=== PATIENT | female | born 1965 | race Caucasian/White ===

== ENCOUNTER 2016-12-30 03:58 | Emergency (ER) | payer SELFPAY ==
[~2016-12-30] VITALS: Ht 167.6 cm; Wt 68.0 kg
[2016-12-30 03:59] VITALS: BP 133/92; PULSE 83; RESP 16; TEMP 98.5; O2SAT 96
--- NOTE | 2016-12-30 04:59 | PD ---
HPI Chief Complaint: Medication Refill Request Time Seen by Provider: 04:45 Travel History International Travel<30 days: No Contact w/Intl Traveler<30days: No Traveled to known affect area: No History of Present Illness HPI 51-year-old female recently moved to the area from [place], [place] questioning refills of her chronic medications for pain and bipolar disorder. She denies HI/ SI. Denies recent illicit drug use or overdose. History Past Medical Histgory Tetanus Vaccination: < 5 Years Social History Alcohol Use: No Tobacco Use: No Allergies-Medications (Allergen,Severity, Reaction): Coded Allergies: Penicillins (Verified Allergy, Mild, SORES, 12/30/16) "I BREAK OUT IN SORES IN MY MOUTH" Sulfa (Sulfonamide Antibiotics) (Verified Allergy, Mild, SORES, 12/30/16) "I GET SORES ON THE INSIDE OF MY MOUTH" Reported Meds & Prescriptions Reported Meds & Active Scripts Active Reported Adderall (Amphetamine-Dextroamphetamine) 30 Mg Tab 30 Mg PO BID Avoid late evening doses. Space doses at least 4 to 6 hours if more than once/day dosing. [suboxone] 24 Mg PO TID Levothyroxine (Levothyroxine Sodium) 75 Mcg Tab 75 Mcg PO DAILY Proair Hfa 8.5 GM Inh (Albuterol Sulfate) 90 Mcg/Act Aer 1 Puff INH Q4H PRN 108 mcg/actuation Clonidine (Clonidine HCl) 0.1 Mg Tab 0.1 Mg PO BID Lactulose Liq (Lactulose) 10 Gm/15 Ml Soln 30 Ml PO BID Metoprolol Succinate ER 24 HR (Metoprolol Succinate) 25 Mg Tab 25 Mg PO DAILY Estradiol 1 Mg Tab 1 Mg PO DAILY Nexium (Esomeprazole DR) 40 Mg Capdr 40 Mg PO DAILY Trileptal (Oxcarbazepine) 600 Mg Tab 600 Mg PO TID Abilify (Aripiprazole) 10 Mg Tab 10 Mg PO DAILY Review of Systems Except as stated in HPI: all other systems reviewed are Neg Physical Exam Narrative GENERAL: Well-developed appears older than stated age SKIN: Focused skin assessment warm/dry. HEAD: Atraumatic. Normocephalic. EYES: Pupils equal and round. No scleral icterus. No injection or drainage. ENT: No nasal bleeding or discharge. Mucous membranes pink and moist. NECK: Trachea midline. No JVD. CARDIOVASCULAR: Regular rate and rhythm. No murmur appreciated. RESPIRATORY: No accessory muscle use. Clear to auscultation. Breath sounds equal bilaterally. MUSCULOSKELETAL: No obvious deformities. No clubbing. No cyanosis. No edema. NEUROLOGICAL: Awake and alert. Motor grossly within normal limits. Normal speech. PSYCHIATRIC: Appropriate mood and affect. Data Data Last Documented VS Vital Signs Date Time Temp Pulse Resp B/P (MAP) Pulse Ox O2 Delivery O2 Flow Rate FiO2 12/30/16 03:59 98.5 83 16 133/92 (106) 96 Room Air MDM Medical Screen Exam Complete: Yes Emergency Medical Condition: No Differential Diagnosis Substance Abuse Disorder Narrative Course [id number]/f here for medication refill of multiple medications to include Suboxone, Adderall, and blood pressure medications. She stats that she has appointment Saturday with psychiatry for refill of her medications. Denies SI/HI. Denies illicit drug use or medication overdose. Pt understands that this needs to be refilled by her primary care doctor or psychiatrist but does not want to wait. Pt given local resource information and advised to follow up with her physicians. A medical screening exam was performed: At the time of evaluation the presenting medical condition was determined not to be of an emergent nature. The patient was given the option of receiving additional care, but declined. Patient was given options for additional community resources from which to obtain care. The Patient Has Been advised to seek medical attention for their presenting complaint. The patient has been advised to return to the ER at any time if an emergent condition develops. Primary Impression: Encounter for medical screening examination Disposition: 01 DISCHARGE HOME Condition: Stable Eileen Brock Dec 30, 2016 04:59
[2016-12-30] MEDS ORDERED: suboxone PO (05:01)
[2016-12-30] MEDS ORDERED: ESTR1TAB PO (05:01)
[2016-12-30] MEDS ORDERED: TRIL600T PO (05:01)
[2016-12-30] MEDS ORDERED: CLON0.1T PO (05:01)
[2016-12-30] MEDS ORDERED: NEXI40CA PO (05:01)
[2016-12-30] MEDS ORDERED: ALBUAER3 INH (05:01)
[2016-12-30] MEDS ORDERED: LEVO75TA3 PO (05:01)
[2016-12-30] MEDS ORDERED: LACT10SO PO (05:01)
[2016-12-30] MEDS ORDERED: ADDE30TA PO (05:01)
[2016-12-30] MEDS ORDERED: METO25TA6 PO (05:01)
[2016-12-30] MEDS ORDERED: ARIP1TAB5 PO (05:01)
== END 2016-12-30 10:01 | disposition left against medical advice (07) ==
LOC: NEPD 03:58
DX: F31.9 Bipolar disorder, unspecified (principal); Z76.0 Encounter for issue of repeat prescription
CPT/HCPCS: 99281

== ENCOUNTER 2017-02-14 18:30 | Emergency (ER) | payer MEDICARE, OTHER ==
[~2017-02-14] VITALS: Ht 167.6 cm; Wt 64.0 kg
[~2017-02-14 18:30] MED LIST: ABIL10TA8 PO; ADDE30TA PO; ALBUAER3 INH; CLON0.1T PO; ESTR1TAB PO; LACT10SO PO; LEVO75TA3 PO; METO1TAB42 PO; NEXI40CA PO; TRIL600T PO; suboxone PO
[2017-02-14 18:40] VITALS: BP 191/86; PULSE 86; RESP 16; TEMP 98.7; O2SAT 98
[2017-02-14] MEDS ORDERED: TOPA50TA7 PO (18:55)
[2017-02-14] MEDS ORDERED: PHEN-537 PO (18:55)
[2017-02-14] MEDS ORDERED: ZOFR4TAB PO (18:55)
[2017-02-14] MEDS ORDERED: LISD50 PO (18:55)
[2017-02-14 19:01] VITALS: BP 199/86; PULSE 88; RESP 20; O2SAT 98
--- NOTE | 2017-02-14 20:13 | PD ---
HPI Chief Complaint: Psychiatric Symptoms Time Seen by Provider: 18:51 Travel History International Travel<30 days: No Contact w/Intl Traveler<30days: No Traveled to known affect area: No History of Present Illness HPI 51-year-old female presents to the emergency room under Jacobs act initiated by her addiction physician. according to transfer report, patient was placed under Jacobs act because she appears to be persistently manic with flight of ideas, tangential thinking, and refuses voluntary treatment for drug addiction. Her physician is concerned that she is using methamphetamine and lying about it. Patient denies any recent drug use. States she has not used drugs since 2014 after her dog . She denies suicidal or homicidal ideation. denies hallucinations or delusions. States she has not had her psychiatric medication recently because she was in [facility]. Patient has history of hypothyroidism, hypertension, COPD, and GERD. PFSH Past Medical History Autoimmune Disease: Yes (Hepatitis C) Bipolar Disorder: Yes Anxiety: Yes Depression: Yes Diabetes: Yes Patient Takes Glucophage: No Diminished Hearing: No GERD: Yes Hypertension: Yes ?: Not : 2 Para: 2 Past Surgical History Hysterectomy: Yes Social History Alcohol Use: No Tobacco Use: No Substance Use: Yes (HX polysubstance) Allergies-Medications (Allergen,Severity, Reaction): Coded Allergies: Penicillins (Verified Allergy, Mild, SORES, 12/30/16) "I BREAK OUT IN SORES IN MY MOUTH" Sulfa (Sulfonamide Antibiotics) (Verified Allergy, Mild, SORES, 12/30/16) "I GET SORES ON THE INSIDE OF MY MOUTH" Reported Meds & Prescriptions Reported Meds & Active Scripts Active Reported Topamax (Topiramate) 50 Mg Tab 50 Mg PO HS Phenazopyridine (Phenazopyridine HCl) 200 Mg Tab 200 Mg PO TID Zofran (Ondansetron HCl) 4 Mg Tab 4 Mg PO Q6HR PRN Vyvanse (Lisdexamfetamine Dimesylate) 50 Mg Cap 100 Mg PO HS Adderall (Amphetamine-Dextroamphetamine) 30 Mg Tab 30 Mg PO BID Avoid late evening doses. Space doses at least 4 to 6 hours if more than once/day dosing. [suboxone] 24 Mg PO TID Levothyroxine (Levothyroxine Sodium) 75 Mcg Tab 75 Mcg PO DAILY Proair Hfa 8.5 GM Inh (Albuterol Sulfate) 90 Mcg/Act Aer 1 Puff INH Q4H PRN 108 mcg/actuation Clonidine (Clonidine HCl) 0.1 Mg Tab 0.1 Mg PO BID Lactulose Liq (Lactulose) 10 Gm/15 Ml Soln 30 Ml PO BID Metoprolol Succinate ER 24 HR (Metoprolol Succinate) 25 Mg Tab 25 Mg PO DAILY Estradiol 1 Mg Tab 1 Mg PO DAILY Nexium (Esomeprazole DR) 40 Mg Capdr 40 Mg PO DAILY Trileptal (Oxcarbazepine) 600 Mg Tab 600 Mg PO TID Abilify (Aripiprazole) 10 Mg Tab 10 Mg PO DAILY Review of Systems Except as stated in HPI: all other systems reviewed are Neg Physical Exam Narrative GENERAL: Well-nourished, well-developed female in no acute distress. Afebrile. Ambulatory. SKIN: Focused skin assessment warm/dry. HEAD: Normocephalic. EYES: No scleral icterus. No injection or drainage. NECK: Supple, trachea midline. No JVD or lymphadenopathy. CARDIOVASCULAR: Regular rate and rhythm without murmurs, gallops, or rubs. RESPIRATORY: Breath sounds equal bilaterally. No accessory muscle use. PSYCHIATRIC: No delusional thought processes. No hallucinations. Pressured speech. Flight of ideas. Data Data Last Documented VS Vital Signs Date Time Temp Pulse Resp B/P (MAP) Pulse Ox O2 Delivery O2 Flow Rate FiO2 02/15/17 06:44 97.8 73 148/67 (94) 96 Room Air 02/14/17 23:41 16 Orders Orders Complete Blood Count With Diff (02/14/17 19:16) Comprehensive Metabolic Panel (02/14/17 19:16) Psych Screen (02/14/17 19:16) Drug Screen, Random Urine (02/14/17 19:16) Alcohol (Ethanol) (02/14/17 19:16) Clonidine (Catapres) (02/14/17 21:00) Diphenhydramine (Benadryl) (02/14/17 21:00) Electrocardiogram (02/15/17 06:43) Troponin I (02/15/17 06:43) Diet Regular Basic (02/15/17 Breakfast) Diet Regular Basic (02/15/17 Lunch) Ed Discharge Order (02/15/17 11:19) Labs Laboratory Tests Test 02/14/17 20:10 02/15/17 06:45 White Blood Count 9.3 TH/MM3 Red Blood Count 4.60 MIL/MM3 Hemoglobin 13.3 GM/DL Hematocrit 40.2 % Mean Corpuscular Volume 87.5 FL Mean Corpuscular Hemoglobin 29.0 PG Mean Corpuscular Hemoglobin Concent 33.1 % Red Cell Distribution Width 13.6 % Platelet Count 354 TH/MM3 Mean Platelet Volume 8.1 FL Neutrophils (%) (Auto) 53.7 % Lymphocytes (%) (Auto) 34.3 % Monocytes (%) (Auto) 6.3 % Eosinophils (%) (Auto) 4.8 % Basophils (%) (Auto) 0.9 % Neutrophils # (Auto) 5.0 TH/MM3 Lymphocytes # (Auto) 3.2 TH/MM3 Monocytes # (Auto) 0.6 TH/MM3 Eosinophils # (Auto) 0.4 TH/MM3 Basophils # (Auto) 0.1 TH/MM3 CBC Comment DIFF FINAL Differential Comment Blood Urea Nitrogen 13 MG/DL Creatinine 0.68 MG/DL Random Glucose 91 MG/DL Total Protein 7.6 GM/DL Albumin 3.8 GM/DL Calcium Level 9.1 MG/DL Alkaline Phosphatase 91 U/L Aspartate Amino Transf (AST/SGOT) 19 U/L Alanine Aminotransferase (ALT/SGPT) 24 U/L Total Bilirubin 0.3 MG/DL Sodium Level 139 MEQ/L Potassium Level 3.9 MEQ/L Chloride Level 106 MEQ/L Carbon Dioxide Level 25.0 MEQ/L Anion Gap 8 MEQ/L Estimat Glomerular Filtration Rate 91 ML/MIN Urine Opiates Screen NEG Urine Barbiturates Screen NEG Urine Amphetamines Screen POS Urine Benzodiazepines Screen NEG Urine Cocaine Screen NEG Urine Cannabinoids Screen NEG Ethyl Alcohol Level LESS THAN 3 MG/DL Troponin I LESS THAN 0.02 NG/ML MDM Medical Decision Making Medical Screen Exam Complete: Yes Emergency Medical Condition: Yes Medical Record Reviewed: Yes Differential Diagnosis Bipolar disorder, drug induced mood disorder, suicidal ideation, drug abuse, schizophrenia Narrative Course 51-year-old female presents to the emergency room under Jacobs act initiated by her addiction physician. States she went to his office earlier today for counseling and ended up getting placed under Jacobs act. Per report, her physician is concerned that she is using methamphetamine and lying about it and refusing treatment. She denies suicidal homicidal ideation. Patient does have pressured speech and flight of ideas but speech is logical. She denies any medical complaints at this time. CBC is unremarkable. CMP and drug screen ordered and pending. Patient notes that her provider Condition: Evette Jacinto Feb 14, 2017 20:13
[2017-02-14 20:43] LABS: BASOPHIL # 0.1 TH/MM3 (0-0.2); BASOPHIL % 0.9 % (0.0-2.0); EOSINOPHIL # 0.4 TH/MM3 (0-0.4); EOSINOPHIL % 4.8 % (0.0-4.0); HEMATOCRIT 40.2 % (35.0-46.0); HEMO FLAGS DIFF FINAL; LYMPH % 34.3 % (9.0-44.0); LYMPHOCYTE # 3.2 TH/MM3 (1.0-4.8); MEAN CELL VOLUME 87.5 FL (80.0-100.0); MEAN CORPUSCULAR HGB CONC 33.1 % (32.0-36.0); MONO % 6.3 % (0.0-8.0); NEUT % 53.7 % (16.0-70.0); PLATELET COUNT 354 TH/MM3 (150-450); RED CELL DISTRIBUTION WIDTH 13.6 % (11.6-17.2); WHITE BLOOD COUNT 9.3 TH/MM3 (4.0-11.0)
[2017-02-14] MEDS ORDERED: cloNIDine HCL 0.1 MG TAB PO ONE (21:00)
[2017-02-14] MEDS ORDERED: diphenhydrAMINE HCL 50 MG CAP PO ONE (21:00)
[2017-02-14 21:09] LABS: ALT (GPT) 24 U/L (10-53); ANION GAP 8 MEQ/L (5-15); AST (GOT) 19 U/L (15-37); BLOOD UREA NITROGEN 13 MG/DL (7-18); CHLORIDE 106 MEQ/L (98-107); GLOMERULAR FILTRATION RATE 91 ML/MIN (>89); POTASSIUM 3.9 MEQ/L (3.5-5.1); SODIUM (NA) 139 MEQ/L (136-145)
[2017-02-14 21:12] LABS: ALKALINE PHOSPHATASE 91 U/L (45-117); TOTAL BILIRUBIN ADULT 0.3 MG/DL (0.2-1.0)
[2017-02-14 21:30] LABS: ALCOHOL LESS THAN 3 MG/DL (0-5)
--- NOTE | 2017-02-14 23:04 | PD ---
Physical Exam Narrative I, Dr. Quinonez, have reviewed the advance practice practitioner's documentation and am in agreement, met with the patient face to face, made the diagnosis, and the medical decision making was done by me. *My assessment and Findings: Manic episode vs. psychosis vs. drug induced psychosis 51yo F was grider acted by her addiction physician. Pt has a flight of ideas. Labs reviewed, no leukocytosis. H/H normal. CMP unremarkable. Urine tox positive for amphetamine. Alcohol negative. BP was elevated and pt given clonidine for it. Pt also requesting medication to help her sleep so diphenhydramine 50mg PO given. Pt medically clear for psych evaluation. Data Data Last Documented VS Vital Signs Date Time Temp Pulse Resp B/P (MAP) Pulse Ox O2 Delivery O2 Flow Rate FiO2 02/15/17 12:05 02/15/17 06:44 97.8 73 96 Room Air 02/14/17 23:41 16 Orders Orders Complete Blood Count With Diff (02/14/17 19:16) Comprehensive Metabolic Panel (02/14/17 19:16) Psych Screen (02/14/17 19:16) Drug Screen, Random Urine (02/14/17 19:16) Alcohol (Ethanol) (02/14/17 19:16) Clonidine (Catapres) (02/14/17 21:00) Diphenhydramine (Benadryl) (02/14/17 21:00) Electrocardiogram (02/15/17 06:43) Troponin I (02/15/17 06:43) Diet Regular Basic (02/15/17 Breakfast) Ed Discharge Order (02/15/17 11:19) Labs Laboratory Tests Test 02/14/17 20:10 02/15/17 06:45 White Blood Count 9.3 TH/MM3 Red Blood Count 4.60 MIL/MM3 Hemoglobin 13.3 GM/DL Hematocrit 40.2 % Mean Corpuscular Volume 87.5 FL Mean Corpuscular Hemoglobin 29.0 PG Mean Corpuscular Hemoglobin Concent 33.1 % Red Cell Distribution Width 13.6 % Platelet Count 354 TH/MM3 Mean Platelet Volume 8.1 FL Neutrophils (%) (Auto) 53.7 % Lymphocytes (%) (Auto) 34.3 % Monocytes (%) (Auto) 6.3 % Eosinophils (%) (Auto) 4.8 % Basophils (%) (Auto) 0.9 % Neutrophils # (Auto) 5.0 TH/MM3 Lymphocytes # (Auto) 3.2 TH/MM3 Monocytes # (Auto) 0.6 TH/MM3 Eosinophils # (Auto) 0.4 TH/MM3 Basophils # (Auto) 0.1 TH/MM3 CBC Comment DIFF FINAL Differential Comment Blood Urea Nitrogen 13 MG/DL Creatinine 0.68 MG/DL Random Glucose 91 MG/DL Total Protein 7.6 GM/DL Albumin 3.8 GM/DL Calcium Level 9.1 MG/DL Alkaline Phosphatase 91 U/L Aspartate Amino Transf (AST/SGOT) 19 U/L Alanine Aminotransferase (ALT/SGPT) 24 U/L Total Bilirubin 0.3 MG/DL Sodium Level 139 MEQ/L Potassium Level 3.9 MEQ/L Chloride Level 106 MEQ/L Carbon Dioxide Level 25.0 MEQ/L Anion Gap 8 MEQ/L Estimat Glomerular Filtration Rate 91 ML/MIN Urine Opiates Screen NEG Urine Barbiturates Screen NEG Urine Amphetamines Screen POS Urine Benzodiazepines Screen NEG Urine Cocaine Screen NEG Urine Cannabinoids Screen NEG Ethyl Alcohol Level LESS THAN 3 MG/DL Troponin I LESS THAN 0.02 NG/ML MDM Supervised Visit with DEVAUGHN: Yes Diagnosis Primary Impression: Psychosis Condition: Stable Yamilet Quinonez DO Feb 14, 2017 23:04
[2017-02-14 23:41] VITALS: BP 115/56; PULSE 97; RESP 16; O2SAT 97
[2017-02-15 06:44] VITALS: BP 148/67; PULSE 73; TEMP 97.8; O2SAT 96
--- NOTE | 2017-02-15 10:33 | PD ---
History of Present Illness Chief Complaint: Psychiatric Symptoms Time Seen by Provider: 10:15 Travel History International Travel<30 Days: No Contact w/Intl Traveler<30days: No Known affected area: No Legal Status Legal Status: Jacobs Act Jacobs Act Signed By: DR. TERE NORWOOD AT [facility] History of Present Illness: 51-year-old female with reported history of bipolar disorder, Arlene acted ( incorrectly) and under a physician certificate for possible substance abuse of amphetamines. Patient denies the abuse of amphetamines. She does acknowledge having them in her possession and her toxicology screen is positive for amphetamines. However, the patient denies any suicidal or homicidal ideation, plan or intent. She has no psychotic symptoms and her cognition is intact. She is verbally maryse for safety and she is competent to do so. Furthermore, this facility is not licensed for drug and alcohol detox/ rehabilitation. The patient was offered transportation to [facility], which is the appropriate facility for treatment of alcohol and drug abuse issues. However, she prefers to go to her hotel and arrange transportation back to her home in [place]. PFSH Past Medical History Autoimmune Disease: Yes (Hepatitis C) Bipolar Disorder: Yes Anxiety: Yes Depression: Yes Diabetes: Yes Patient Takes Glucophage: No Diminished Hearing: No GERD: Yes Hypertension: Yes ?: Not : 2 Para: 2 Past Surgical History Hysterectomy: Yes Psychiatric History Psychiatric History Hx Psychiatric Treatment: HX: BIPOLAR DISORDER PATIENT WAS NOT VERY FORTHCOMING WITH INFORMATION OF HISTORY OF PSYCHIATRIC ILLNESS. The patient is talkative this morning but she does not have pressured speech and she is redirectable. History of Inpatient Treatment: Yes Guns or firearms in home: No Social History Hx Alcohol Use: No Hx Tobacco Use: No Hx Substance Use: Yes (PER JACOBS ACT: AMPHETAMINE ABUSE) Substance Use Type: Amphetamines-Stimulants Hx of Substance Use Treatment: Yes Allergies-Medications (Allergen,Severity, Reaction): Coded Allergies: Penicillins (Verified Allergy, Mild, SORES, 12/30/16) "I BREAK OUT IN SORES IN MY MOUTH" Sulfa (Sulfonamide Antibiotics) (Verified Allergy, Mild, SORES, 12/30/16) "I GET SORES ON THE INSIDE OF MY MOUTH" Reported Meds & Prescriptions Reported Meds & Active Scripts Active Reported Topamax (Topiramate) 50 Mg Tab 50 Mg PO HS Phenazopyridine (Phenazopyridine HCl) 200 Mg Tab 200 Mg PO TID Zofran (Ondansetron HCl) 4 Mg Tab 4 Mg PO Q6HR PRN Vyvanse (Lisdexamfetamine Dimesylate) 50 Mg Cap 100 Mg PO HS Adderall (Amphetamine-Dextroamphetamine) 30 Mg Tab 30 Mg PO BID Avoid late evening doses. Space doses at least 4 to 6 hours if more than once/day dosing. [suboxone] 24 Mg PO TID Levothyroxine (Levothyroxine Sodium) 75 Mcg Tab 75 Mcg PO DAILY Proair Hfa 8.5 GM Inh (Albuterol Sulfate) 90 Mcg/Act Aer 1 Puff INH Q4H PRN 108 mcg/actuation Clonidine (Clonidine HCl) 0.1 Mg Tab 0.1 Mg PO BID Lactulose Liq (Lactulose) 10 Gm/15 Ml Soln 30 Ml PO BID Metoprolol Succinate ER 24 HR (Metoprolol Succinate) 25 Mg Tab 25 Mg PO DAILY Estradiol 1 Mg Tab 1 Mg PO DAILY Nexium (Esomeprazole DR) 40 Mg Capdr 40 Mg PO DAILY Trileptal (Oxcarbazepine) 600 Mg Tab 600 Mg PO TID Abilify (Aripiprazole) 10 Mg Tab 10 Mg PO DAILY Review of Systems Except as stated in HPI: all other systems reviewed are Neg Mental Status Examination Appearance: Appropriate Consciousness: Alert Orientation: x4 Motor Activity: Normal gait Speech: Rapid Language: Adequate Fund of Knowledge: Adequate Attention and Concentration: Adequate Memory: Unremarkable Mood: Appropriate Affect: Appropriate Thought Process & Associations: Circumstantial, Tangential Thought Content: Appropriate Hallucination Type: None Delusion Type: None Suicidal Ideation: No Suicidal Plan: No Suicidal Intention: No Homicidal Ideation: No Homicidal Plan: No Homicidal Intention: No Insight: Adequate Judgment: Adequate MDM Medical Decision Making Medical Record Reviewed: Yes Assessment/Plan Patient interviewed at bedside, medical record reviewed and case discussed with nurse Lord. This physician does not feel the patient meets Jaocbs act criteria or criteria for involuntary psychiatric hospitalization. Furthermore, if she has a substance abuse problem, the licensed facility for treatment of substance abuse or dependence is [facility]. Patient declines to go to [facility] at this time and is competent to make medical decisions. Orders Orders Complete Blood Count With Diff (02/14/17 19:16) Comprehensive Metabolic Panel (02/14/17 19:16) Psych Screen (02/14/17 19:16) Drug Screen, Random Urine (02/14/17 19:16) Alcohol (Ethanol) (02/14/17 19:16) Clonidine (Catapres) (02/14/17 21:00) Diphenhydramine (Benadryl) (02/14/17 21:00) Electrocardiogram (02/15/17 06:43) Troponin I (02/15/17 06:43) Diet Regular Basic (02/15/17 Breakfast) Results Vital Signs Date Time Temp Pulse Resp B/P (MAP) Pulse Ox O2 Delivery O2 Flow Rate FiO2 02/15/17 06:44 97.8 73 148/67 (94) 96 Room Air 02/15/17 01:34 02/14/17 23:41 97 16 115/56 (75) 97 Room Air 02/14/17 19:01 88 20 199/86 (123) 98 Room Air 02/14/17 18:40 98.7 86 16 191/86 (121) 98 Laboratory Tests Test 02/14/17 20:10 02/15/17 06:45 White Blood Count 9.3 Red Blood Count 4.60 Hemoglobin 13.3 Hematocrit 40.2 Mean Corpuscular Volume 87.5 Mean Corpuscular Hemoglobin 29.0 Mean Corpuscular Hemoglobin Concent 33.1 Red Cell Distribution Width 13.6 Platelet Count 354 Mean Platelet Volume 8.1 Neutrophils (%) (Auto) 53.7 Lymphocytes (%) (Auto) 34.3 Monocytes (%) (Auto) 6.3 Eosinophils (%) (Auto) 4.8 Basophils (%) (Auto) 0.9 Neutrophils # (Auto) 5.0 Lymphocytes # (Auto) 3.2 Monocytes # (Auto) 0.6 Eosinophils # (Auto) 0.4 Basophils # (Auto) 0.1 CBC Comment DIFF FINAL Differential Comment Blood Urea Nitrogen 13 Creatinine 0.68 Random Glucose 91 Total Protein 7.6 Albumin 3.8 Calcium Level 9.1 Alkaline Phosphatase 91 Aspartate Amino Transf (AST/SGOT) 19 Alanine Aminotransferase (ALT/SGPT) 24 Total Bilirubin 0.3 Sodium Level 139 Potassium Level 3.9 Chloride Level 106 Carbon Dioxide Level 25.0 Anion Gap 8 Estimat Glomerular Filtration Rate 91 Urine Opiates Screen NEG Urine Barbiturates Screen NEG Urine Amphetamines Screen POS Urine Benzodiazepines Screen NEG Urine Cocaine Screen NEG Urine Cannabinoids Screen NEG Ethyl Alcohol Level LESS THAN 3 Troponin I LESS THAN 0.02 Diagnosis Primary Impression: History of depressed bipolar disorder Condition: Stable Sancho Ortiz MD Feb 15, 2017 10:33
--- NOTE | 2017-02-15 11:22 | PD ---
Physical Exam Date Seen by Provider: Feb 15, 2017 Time Seen by Provider: 11:20 Data Data Last Documented VS Vital Signs Date Time Temp Pulse Resp B/P (MAP) Pulse Ox O2 Delivery O2 Flow Rate FiO2 02/15/17 06:44 97.8 73 148/67 (94) 96 Room Air 02/14/17 23:41 16 Orders Orders Complete Blood Count With Diff (02/14/17 19:16) Comprehensive Metabolic Panel (02/14/17 19:16) Psych Screen (02/14/17 19:16) Drug Screen, Random Urine (02/14/17 19:16) Alcohol (Ethanol) (02/14/17 19:16) Clonidine (Catapres) (02/14/17 21:00) Diphenhydramine (Benadryl) (02/14/17 21:00) Electrocardiogram (02/15/17 06:43) Troponin I (02/15/17 06:43) Diet Regular Basic (02/15/17 Breakfast) Diet Regular Basic (02/15/17 Lunch) Ed Discharge Order (02/15/17 11:19) Labs Laboratory Tests Test 02/14/17 20:10 02/15/17 06:45 White Blood Count 9.3 TH/MM3 Red Blood Count 4.60 MIL/MM3 Hemoglobin 13.3 GM/DL Hematocrit 40.2 % Mean Corpuscular Volume 87.5 FL Mean Corpuscular Hemoglobin 29.0 PG Mean Corpuscular Hemoglobin Concent 33.1 % Red Cell Distribution Width 13.6 % Platelet Count 354 TH/MM3 Mean Platelet Volume 8.1 FL Neutrophils (%) (Auto) 53.7 % Lymphocytes (%) (Auto) 34.3 % Monocytes (%) (Auto) 6.3 % Eosinophils (%) (Auto) 4.8 % Basophils (%) (Auto) 0.9 % Neutrophils # (Auto) 5.0 TH/MM3 Lymphocytes # (Auto) 3.2 TH/MM3 Monocytes # (Auto) 0.6 TH/MM3 Eosinophils # (Auto) 0.4 TH/MM3 Basophils # (Auto) 0.1 TH/MM3 CBC Comment DIFF FINAL Differential Comment Blood Urea Nitrogen 13 MG/DL Creatinine 0.68 MG/DL Random Glucose 91 MG/DL Total Protein 7.6 GM/DL Albumin 3.8 GM/DL Calcium Level 9.1 MG/DL Alkaline Phosphatase 91 U/L Aspartate Amino Transf (AST/SGOT) 19 U/L Alanine Aminotransferase (ALT/SGPT) 24 U/L Total Bilirubin 0.3 MG/DL Sodium Level 139 MEQ/L Potassium Level 3.9 MEQ/L Chloride Level 106 MEQ/L Carbon Dioxide Level 25.0 MEQ/L Anion Gap 8 MEQ/L Estimat Glomerular Filtration Rate 91 ML/MIN Urine Opiates Screen NEG Urine Barbiturates Screen NEG Urine Amphetamines Screen POS Urine Benzodiazepines Screen NEG Urine Cocaine Screen NEG Urine Cannabinoids Screen NEG Ethyl Alcohol Level LESS THAN 3 MG/DL Troponin I LESS THAN 0.02 NG/ML MDM Medical Record Reviewed: Yes Supervised Visit with DEVAUGHN: No Narrative Course 51-year-old female presented to the emergency room yesterday under Jacobs act initiated by her addiction physician. According a Jacobs act, patient was acting manically and is concerned she was lying about her methamphetamine use. Patient denies suicidal or homicidal ideation on presentation and at this time. She was seen by the psychiatrist and jacobs act was lifted; she is not felt to be a threat to herself or others at this time. She is anxious to leave. She has plans for the rest of the day. She is stable for discharge. Diagnosis Primary Impression: History of depressed bipolar disorder Additional Instruction: Follow-up per psychiatrist's recommendations. Disposition: 01 DISCHARGE HOME Condition: Stable Evette Lima Feb 15, 2017 11:22
--- NOTE | 2017-02-15 18:03 | EKG ---
Date Performed: 02/15/2017 Time Performed: 06:34:35 PTAGE: 51 years EKG: Sinus rhythm VOLTAGE CRITERIA FOR LVH POSSIBLE SEPTAL MYOCARDIAL INFARCTION ABNORMAL ECG PREVIOUS TRACING : 02/05/2017 10.44 DOCTOR: Renetta Rivera Interpretating Date/Time 02/15/2017 18:00:44
== END 2017-02-15 12:55 | disposition home or self-care (01) ==
LOC: NEPD 18:30 → NEPJ 02-15 12:55
DX: F31.9 Bipolar disorder, unspecified (principal); F41.9 Anxiety disorder, unspecified; I10 Essential (primary) hypertension; E11.9 Type 2 diabetes mellitus without complications; K21.9 Gastro-esophageal reflux disease without esophagitis; B19.20 Unspecified viral hepatitis C without hepatic coma; R94.31 Abnormal electrocardiogram [ECG] [EKG]
CPT/HCPCS: 80053; 80307; 84484; 85025; 93005; 99284; Q0163